=== PATIENT | female | born 1975 | race African-American/Black ===

== ENCOUNTER 2019-06-27 11:22 | Inpatient (IN) ==
[2019-06-27] MEDS ORDERED: KETOROLAC 30 MG/1 ML VIAL IM STA (14:21)
[2019-06-27] MEDS ORDERED: ONDANSETRON ODT 4 MG TABLET PO STA (14:21)
[2019-06-27 14:57] LABS: Basophils % 0.5 % (0.0-0.8); Eosinophils % 0.5 % (0.00-10.9); Hematocrit 21.9 VOL% (35.7-47.0); Immature Granulocytes % 0.6 %; Immature Granulocytes Absolute 0.05 #; Lymphocytes # 1.4 10*3/uL (1.4-4.0); Lymphocytes % 17.6 % (21.3-54.2); Mean Corpuscular HGB Conc 26.5 GM/DL (32-36); Mean Corpuscular Volume 62.4 FL (87-102); Mean Platelet Volume 10.1 FL (9.6-12.0); Monocytes % 3.7 % (1.7-12.7); Neutrophils % 77.1 % (38.7-73.9); Platelet Count 287 T/CUMM (130-400); Red Blood Count 3.51 MC/CUMM (3.8-5.5); Red Cell Distribution Width 19.8 % (9.3-17.3); White Blood Count 8.1 T/CUMM (4-12)
[2019-06-27 14:59] LABS: Hemoglobin 5.8 GM/DL (12.0-16.0)
[2019-06-27 15:14] LABS: Calcium 8.9 MG/DL (8.5-10.1); Osmolality,Calculated 277.4 MOS/KG (273-304)
[2019-06-27 15:38] LABS: Hypochromasia 3+; Microcytosis 2+; Ovalocytes Few; Platelet Estimate Normal; Target Cells Few
[2019-06-27 15:39] LABS: Acanthocytes Few
[2019-06-27] MEDS ORDERED: ONDANSETRON 4 MG/2 ML VIAL IV PRN (15:41)
[2019-06-27] MEDS ORDERED: SODIUM CHLORIDE 0.9% 1,000 ML IV PRN (15:43)
[2019-06-27] MEDS ORDERED: SODIUM CHLORIDE 0.9% 1,000 ML IV STA (15:55)
[2019-06-27] MEDS ORDERED: INFLUENZA VIRUS VACCINE 0.5 ML SYRINGE IM ONE (18:45)
[2019-06-27] MEDS: ACETAMINOPHEN 325 MG TABLET PO PRN (20:09)
[2019-06-27 20:38] LABS: Folate 10.2 NG/ML (5.4-24.0); Vitamin B12 531 PG/ML (211-911)
[2019-06-28 06:31] LABS: Hematocrit 27.8 VOL% (35.7-47.0)
[2019-06-28] MEDS: ACETAMINOPHEN 325 MG TABLET PO PRN ×2 (08:00→23:11)
[2019-06-28 08:08] LABS: Hematocrit 21.9 VOL% (35.7-47.0); Red Blood Count 3.51 MC/CUMM (3.8-5.5); White Blood Count 8.1 T/CUMM (4-12)
[2019-06-28 08:09] LABS: Mean Corpuscular HGB Conc 26.5 GM/DL (32-36); Mean Corpuscular Volume 62.4 FL (87-102); Platelet Count 287 T/CUMM (130-400); Red Cell Distribution Width 19.8 % (9.3-17.3)
[2019-06-28 08:10] LABS: Hemoglobin 5.8 GM/DL (12.0-16.0); Mean Platelet Volume 10.1 FL (9.6-12.0); Neutrophils % 77.1 % (38.7-73.9)
[2019-06-28 08:11] LABS: Basophils % 0.5 % (0.0-0.8); Eosinophils % 0.5 % (0.00-10.9); Hypochromasia 3+; Immature Granulocytes % 0.6 %; Immature Granulocytes Absolute 0.05 #; Lymphocytes # 1.4 10*3/uL (1.4-4.0); Lymphocytes % 17.6 % (21.3-54.2); Microcytosis 2+; Monocytes % 3.7 % (1.7-12.7)
[2019-06-28 08:12] LABS: Acanthocytes Few; Ovalocytes Few; Platelet Estimate Normal; Target Cells Few
[2019-06-28 09:22] LABS: Sedimentation Rate-Westergren 30 MM/HR (0-20)
[2019-06-28 13:13] LABS: Hemoglobin A1 (Alkaline) 97.1 % (96.5-98.5); Hemoglobin A2 (Alkaline) 2.9 % (1.5-3.5)
[2019-06-28] MEDS ORDERED: SODIUM CHLORIDE 0.9% 1,000 ML IV PRN ×2 (15:20→16:40)
[2019-06-28] MEDS ORDERED: POTASSIUM CHLORIDE 20 MEQ/15 ML UDCUP PO ONE (16:37)
[2019-06-28 17:46] LABS: Thyroid Stimulating Hormone 1.72 uIU/ml (0.358-3.74)
[2019-06-29 02:53] LABS: Hematocrit 33.1 VOL% (35.7-47.0); Hemoglobin 9.7 GM/DL (12.0-16.0)
[2019-06-29 03:11] LABS: Apearance,Urine CLOUDY (Clear); Bilirubin,Urine Negative (Negative); Blood, Urine Large mg/dL (Negative); Glucose,Urine (UA) Negative (Negative); Ketones,Urine Negative (Negative); Mucus,Urine Occasional /LPF (Occasional); Nitrite,Urine Negative (Negative); Protein,Urine Negative; RBC,Urine 12 /HPF (0-4); Squamous Epithelial Cell,Urine Occasional /HPF (0-10); Urine Color Yellow (Yellow); Urine Specific Gravity 1.013 (1.001-1.035); WBC,Urine 168 /HPF (0-6)
[2019-06-29] MEDS ORDERED: PANTOPRAZOLE 40 MG TABLET PO SCH (09:00)
[2019-06-29 11:40] VITALS: BP 140/79
== END 2019-06-29 12:45 | disposition home or self-care (01) | DRG 760 ==
LOC: N.EDINP 11:22 → N.ED 11:22 → N.2W 18:20 → N.5E 06-28 18:25
PROVIDERS: ADMIT Internal Medicine; ATTEND Internal Medicine

== ENCOUNTER 2019-09-10 05:23 | Inpatient (IN) ==
[2019-09-05 10:24] LABS: Basophils % 0.6 % (0.0-0.8); Eosinophils # 0.1 10*3/uL (0.0-0.87); Eosinophils % 1.8 % (0.00-10.9); Hematocrit 33.6 VOL% (35.7-47.0); Hemoglobin 10.5 GM/DL (12.0-16.0); Immature Granulocytes % 0.1 %; Immature Granulocytes Absolute 0.01 #; Lymphocytes # 2.2 10*3/uL (1.4-4.0); Mean Corpuscular HGB Conc 31.3 GM/DL (32-36); Mean Corpuscular Volume 79.2 FL (87-102); Mean Platelet Volume 9.9 FL (9.6-12.0); Monocytes % 4.9 % (1.7-12.7); Neutrophils % 61.6 % (38.7-73.9); Platelet Count 233 T/CUMM (130-400); Red Blood Count 4.24 MC/CUMM (3.8-5.5); Red Cell Distribution Width 21.9 % (9.3-17.3); White Blood Count 7.2 T/CUMM (4-12)
[2019-09-05 10:34] LABS: Apearance,Urine Slightly Hazy (Clear); Bilirubin,Urine Negative (Negative); Blood, Urine Negative (Negative); Glucose,Urine (UA) Negative (Negative); Ketones,Urine Negative (Negative); Mucus,Urine Occasional /LPF (Occasional); Nitrite,Urine Negative (Negative); Protein,Urine Negative; RBC,Urine 2 /HPF (0-4); Squamous Epithelial Cell,Urine Occasional /HPF (0-10); Urine Color Yellow (Yellow); Urine Urobilinogen < 2.0 EU/DL (0.2-1.0); WBC,Urine 15 /HPF (0-6)
[2019-09-05 10:47] LABS: Alanine Aminotransferase < 9 U/L (13-56); Albumin 3.6 G/DL (3.4-5.0); Alkaline Phosphatase 85 U/L (45-117); Aspartate Amino Transferase 9 U/L (0-37); Blood Urea Nitrogen 8 MG/DL (7-18); Calcium 8.5 MG/DL (8.5-10.1); Estimated Glom Filtration Rate 158 ML/MIN; Glucose 95 MG/DL (74-106); HDL Cholesterol 55 MG/DL (40-60); Osmolality,Calculated 272.7 MOS/KG (273-304); Risk Ratio 2.56; Total Protein 8.1 G/DL (6.4-8.3); Triglycerides 55 MG/DL (2-150)
[2019-09-05 11:38] LABS: HIV Antigen/Antibody Result Nonreactive (Nonreactive)
[2019-09-10] MEDS ORDERED: AMPICILLIN/SULBACTAM 3,000 MG VIAL ONE (05:53)
[2019-09-10] MEDS ORDERED: DIAZEPAM 5 MG TABLET PO ONE (06:28)
[2019-09-10] MEDS ORDERED: FAMOTIDINE 20 MG TABLET PO ONE (06:28)
[2019-09-10] MEDS ORDERED: LACTATED RINGERS 1,000 ML IV SCH (06:30)
[2019-09-10] MEDS ORDERED: AMPICILLIN/SULBACTAM 3,000 MG in SODIUM CHLORIDE 0.9% 100 ML IV ONE (06:30)
[2019-09-10] MEDS ORDERED: DIAZEPAM 5 MG TABLET ONE (06:32)
[2019-09-10] MEDS ORDERED: LIDOCAINE 1% 5 ML VIAL ONE (06:33)
[2019-09-10] MEDS ORDERED: FAMOTIDINE 20 MG TABLET ONE (06:33)
[2019-09-10] MEDS ORDERED: EPINEPHrine 1 MG/ML VIAL ONE (06:33)
[2019-09-10] MEDS ORDERED: DEXAMETHASONE 4 MG/1 ML VIAL ONE ×2 (06:33→09:20)
[2019-09-10] MEDS ORDERED: BUPIVACAINE MPF 0.25% 30 ML VIAL ONE (06:33)
[2019-09-10] MEDS ORDERED: ACETAMINOPHEN 325 MG TABLET PO PRN (08:57)
[2019-09-10] MEDS ORDERED: BISACODYL 10 MG SUPP RECTAL PRN (08:57)
[2019-09-10] MEDS ORDERED: ONDANSETRON 4 MG/2 ML VIAL IV PRN ×2 (08:57→09:41)
[2019-09-10] MEDS ORDERED: BENZOCAINE/MENTHOL LOZENGE 18/BOX PO PRN (08:57)
[2019-09-10 08:58] LABS: Apearance,Urine CLEAR (Clear); Bilirubin,Urine Negative (Negative); Blood, Urine Moderate mg/dL (Negative); Glucose,Urine (UA) Negative (Negative); Ketones,Urine Negative (Negative); Mucus,Urine Occasional /LPF (Occasional); Nitrite,Urine Negative (Negative); Protein,Urine Negative; RBC,Urine 14 /HPF (0-4); Squamous Epithelial Cell,Urine Occasional /HPF (0-10); Urine Color Yellow (Yellow); Urine Specific Gravity 1.012 (1.001-1.035); Urine Urobilinogen < 2.0 EU/DL (0.2-1.0); WBC,Urine 2 /HPF (0-6)
[2019-09-10] MEDS ORDERED: HYDROmorphone 2 MG/1 ML VIAL IV PRN (08:59)
[2019-09-10] MEDS ORDERED: SEVOFLURANE 1 UNIT/15 MINUTE INH ONE (09:18)
[2019-09-10] MEDS ORDERED: propofoL 200 MG/20 ML VIAL IV ONE (09:18)
[2019-09-10] MEDS ORDERED: LIDOCAINE 2% 5 ML VIAL ONE (09:18)
[2019-09-10] MEDS ORDERED: MIDAZOLAM 2 MG/2 ML VIAL ONE (09:19)
[2019-09-10] MEDS ORDERED: ACETAMINOPHEN 1,000 MG/100 ML VIAL IV ONE (09:20)
[2019-09-10] MEDS ORDERED: KETOROLAC 30 MG/1 ML VIAL ONE (09:20)
[2019-09-10] MEDS ORDERED: SUFentanil 50 MCG/ML AMP ONE (09:20)
[2019-09-10] MEDS ORDERED: ROCURONIUM 100 MG/10 ML VIAL IV ONE (09:20)
[2019-09-10] MEDS ORDERED: GLYCOPYRROLATE 0.4 MG/2 ML VIAL ONE (09:20)
[2019-09-10] MEDS ORDERED: PHENYLEPHRINE 1 MG/10 ML SYRINGE IV ONE (09:21)
[2019-09-10] MEDS ORDERED: NEOSTIGMINE 10 MG/10 ML VIAL ONE (09:21)
[2019-09-10] MEDS: HYDROmorphone 2 MG/1 ML VIAL IV PRN ×2 (09:42→09:52)
[2019-09-10] MEDS ORDERED: INFLUENZA VIRUS VACCINE 0.5 ML SYRINGE IM ONE (11:14)
[2019-09-10] MEDS: LACTATED RINGERS 1,000 ML IV SCH ×2 (11:55→21:44)
[2019-09-10] MEDS: ceFAZolin 1,000 MG in SYRINGE 1 EACH IV SCH (16:15)
[2019-09-10 16:35] LABS: Basophils % 0.2 % (0.0-0.8); Hematocrit 28.7 VOL% (35.7-47.0); Hemoglobin 9.1 GM/DL (12.0-16.0); Immature Granulocytes % 0.5 %; Immature Granulocytes Absolute 0.08 #; Lymphocytes # 0.6 10*3/uL (1.4-4.0); Mean Corpuscular HGB Conc 31.7 GM/DL (32-36); Mean Corpuscular Volume 79.5 FL (87-102); Mean Platelet Volume 9.7 FL (9.6-12.0); Monocytes % 0.5 % (1.7-12.7); Neutrophils % 94.8 % (38.7-73.9); Platelet Count 222 T/CUMM (130-400); Red Blood Count 3.61 MC/CUMM (3.8-5.5); Red Cell Distribution Width 20.9 % (9.3-17.3); White Blood Count 15.5 T/CUMM (4-12)
[2019-09-10 17:13] LABS: Lymphocytes 4 % (20-55); Platelet Estimate Adequate; Segmented Neutrophils 96 % (50-85); Total Cells Counted 100
[2019-09-10 17:14] LABS: Anisocytosis Slight; Hypochromasia 1+; Microcytosis 1+; Ovalocytes Few; Poikilocytosis Slight
[2019-09-10] MEDS: KETOROLAC 30 MG/1 ML VIAL IV PRN (19:54)
[2019-09-11] MEDS: ceFAZolin 1,000 MG in SYRINGE 1 EACH IV SCH (00:10)
[2019-09-11] MEDS: KETOROLAC 30 MG/1 ML VIAL IV PRN (04:02)
[2019-09-11 05:03] LABS: Basophils % 0.1 % (0.0-0.8); Hematocrit 26.7 VOL% (35.7-47.0); Hemoglobin 8.2 GM/DL (12.0-16.0); Immature Granulocytes % 0.3 %; Immature Granulocytes Absolute 0.04 #; Lymphocytes # 1.8 10*3/uL (1.4-4.0); Lymphocytes % 15.4 % (21.3-54.2); Mean Corpuscular HGB Conc 30.7 GM/DL (32-36); Mean Corpuscular Volume 79.5 FL (87-102); Mean Platelet Volume 10.3 FL (9.6-12.0); Monocytes % 5.5 % (1.7-12.7); Neutrophils % 78.7 % (38.7-73.9); Platelet Count 234 T/CUMM (130-400); Red Blood Count 3.36 MC/CUMM (3.8-5.5); White Blood Count 11.8 T/CUMM (4-12)
[2019-09-11] MEDS: METOCLOPRAMIDE 10 MG TABLET PO SCH ×2 (10:06→18:20)
[2019-09-11] MEDS: DOCUSATE SODIUM 100 MG CAPSULE PO PRN ×2 (10:06→20:35)
[2019-09-11] MEDS: IBUPROFEN 800 MG TABLET PO PRN ×2 (12:50→20:36)
[2019-09-11] MEDS: MAGNESIUM HYDROXIDE SUSP 30 ML UDCUP PO PRN ×2 (16:05→20:33)
[2019-09-11 16:08] LABS: Basophils % 0.3 % (0.0-0.8); Eosinophils % 0.3 % (0.00-10.9); Hematocrit 25.7 VOL% (35.7-47.0); Hemoglobin 8.1 GM/DL (12.0-16.0); Immature Granulocytes % 0.5 %; Immature Granulocytes Absolute 0.05 #; Lymphocytes # 2.5 10*3/uL (1.4-4.0); Lymphocytes % 25.9 % (21.3-54.2); Mean Corpuscular HGB Conc 31.5 GM/DL (32-36); Mean Corpuscular Volume 79.3 FL (87-102); Mean Platelet Volume 10.6 FL (9.6-12.0); Monocytes % 5.3 % (1.7-12.7); Neutrophils % 67.7 % (38.7-73.9); Platelet Count 216 T/CUMM (130-400); Red Blood Count 3.24 MC/CUMM (3.8-5.5); Red Cell Distribution Width 20.6 % (9.3-17.3); White Blood Count 9.7 T/CUMM (4-12)
[2019-09-12] MEDS: METOCLOPRAMIDE 10 MG TABLET PO SCH ×2 (02:05→09:17)
[2019-09-12] MEDS: IBUPROFEN 800 MG TABLET PO PRN (07:02)
[2019-09-12 11:22] VITALS: BP 113/69
== END 2019-09-12 13:50 | disposition home or self-care (01) | DRG 743 ==
LOC: N.OR 05:23 → N.SDSINP 05:23 → EDSTATUS 07:30 → N.SDSINP 08:56 → N.OB 10:06
PROVIDERS: ADMIT Obstetrics & Gynecology; ATTEND Obstetrics & Gynecology